=== PATIENT | female | born 1950 | race Caucasian/White ===

== ENCOUNTER 2018-09-06 08:38 | Inpatient (IN) | payer OTHER ==
[~2018-09-06] VITALS: Ht 162.6 cm; Wt 46.0 kg
[2018-09-06] VITALS (50 sets, daily range): BP systolic 55–124; BP diastolic 33–60
[~2018-09-06 08:38] MED LIST: AVELOX400 MG PO; BACTRIM DS1 TAB PO; CALCIUM 500+D PO; CRESTOR10 MG PO; DOCU SOFT100 MG PO; DULERA1 AE1 IN; DUONEB IN; HUMIRA10 MG/0.2; IMURAN50 MG PO; LYRICA50 MG PO; PERCOCET 10/31 COMBO PO; PREDNISONE20 MG PO; PREDNISONE5 MG PO; SPIRIVA HANDIHALER IN; ULTRAM50 M1 PO; UNIPHYL400 MG PO; VENTOLIN HFA IN
--- NOTE | 2018-09-06 08:48 | NUR ---
PT IMMEDIATLY TO ROOM FOR SOB. PT IS SERBIAN SPEAKING ONLY. REEL WINDER STATES THAT THE PT HAS BEEN SOB SINCE YESTERDAY. PT IS UNABLE TO TALK IN FULL SENTENCES, IS USING ACCESSORY MUSCLES. PT IS AOX4. DENIES ANY C/P, N/V. BIPAP INITATED. PT TOLERATING WELL.
[2018-09-06 09:05] LABS: IMMATURE GRANULOCYTES 0.9 % (0.0-5.0); MEAN CORPUSCULAR HGB 23.5 pG CALC (26.0-32.0); MEAN CORPUSCULAR HGB CONC 28.1 g/L CALC (32.0-36.0); NEUT# 12.51 thou/uL (2.00-7.15); RED BLOOD COUNT 7.12 mill/uL (4.20-5.60); RED CELL DISTRI WIDTH 19.8 % (11.5-15.5)
--- NOTE | 2018-09-06 09:30 | NUR ---
PT DIFFICULT TO AROUSE, OPEN EYES WITH PAINFUL STIMULI, IS NOT SPEAKING.
[2018-09-06 09:40] LABS: ALBUMIN 4.6 g/dL (3.2-5.0); ALKALINE PHOSPHATASE 158 u/l (38-126); ANION GAP 19 (6-22 (CALC)); BILIRUBIN, TOTAL 1.3 mg/dL (0.0-1.4); BUN 42 mg/dL (8-23); BUN/CREATININE RATIO 76 (12-20 (CALC)); CARBON DIOXIDE 34 mmol/l (22-30); CHLORIDE 94 mmol/l (95-108); CREATININE 0.6 mg/dL (0.5-1.0); GFR > 60 ML/MIN (>=60 (CALC)); GFR FOR AFR.AMER. > 60 ML/MIN (>=60 (CALC)); POTASSIUM 5.6 mmol/l (3.5-5.1); SGOT/AST 49 u/l (9-36); SODIUM 141 mmol/l (137-146); TOTAL PROTEIN 8.3 g/dL (6.3-8.2)
[2018-09-06 09:46] LABS: HEMATOCRIT 59.5 % (37.0-47.0); HEMOGLOBIN 16.7 g/dl (12.0-16.0); MEAN CELL VOLUME 83.6 fL CALC (80.0-100.0)
--- NOTE | 2018-09-06 09:55 | NUR ---
PT INTUBARTED AT 0940 7.5 TUBE 22 CM LIPS BY PT INTUBATED WITH 8 MG VERSED 100 MG ROCKURONIUM
--- NOTE | 2018-09-06 09:59 | NUR ---
REPORT GIVEN TO JEANNA SMALL
--- NOTE | 2018-09-06 10:45 | NUR ---
MD UPDATED ON PTS STATUS, BP AND ONLY ABLE TO ACCESS ONE PERIPHERAL LINE. CALL TO RADIOLOGY FOR PICC PLACEMENT PER EDP REQUEST.
[2018-09-06] MEDS ORDERED: VENLAFAXINE HCL75 M1 PO (11:18)
[2018-09-06] MEDS ORDERED: SEROQUEL25 MG PO (11:20)
[2018-09-06 11:32] LABS: URINE BLOOD DIPSTICK NEGATIVE (NEGATIVE); URINE COLOR YELLOW; URINE GLUCOSE - DIPSTICK NEGATIVE (NEGATIVE); URINE KETONE TRACE mg/dL (NEGATIVE); URINE LEUK ESTERASE NEGATIVE (NEGATIVE); URINE NITRITE - DIPSTICK NEGATIVE (Negative); URINE PROTEIN - DIPSTICK 30 mg/dL (NEG-TRACE); URINE SPECIFIC GRAVITY >=1.030
[2018-09-06 11:39] LABS: URINE BILIRUBIN - DIPSTICK NEGATIVE (NEGATIVE)
[2018-09-06 11:41] LABS: URINE RBC 0-2 RBC/hpf (0-5); URINE WBC 0-2 WBC/hpf (0-5)
[2018-09-06 11:42] LABS: URINE CASTS RARE lpf (NONE-RARE); URINE HYALINE CAST RARE lpf (NONE-RARE); URINE MUCUS FEW hpf (NONE-FEW)
--- NOTE | 2018-09-06 11:56 | NUR ---
PT WITH SECOND LINE NOW, ABX INFUSING THERE. PT ON DIPRIVAN, TITRATED DOWN PER LOW BP TO 5 M/K/M, NOW UP TO 20 PER SLIGHT MOVEMENT AND BP 109/53.
--- NOTE | 2018-09-06 12:10 | NUR ---
REPORT PROVIDED TO JAK IN ICU. PT WILL GO TO CT [facility], THEN ICU-4 AFTER THAT.
--- NOTE | 2018-09-06 12:35 | NUR ---
PT ADMITTED TO ICU BED 4 VIA STERCTHER FROM ER,. PT INTUBATED/SEDATED WITH 7.5F ETT 21cm AT LIP LINE, SEE FLOW SHEET FOR SETTINGS, VS STABLE LUNGS COARSE WITH NO COUGH NOTED AT THIS TIME, ABD SOFT AND BS ACTIVE WITH 12 F OG PLACED BY Anjel ANDRADE RN AND PLACEMENT VERIFIED BY 2 RN'S. NO DRNG NOTED WILL PLACE TO LIS, SKIN WARM DRY AND INTACT, WITH SCATTERED DRY RAISED KERATOTIC TAGS TO ALL EXTREMETIES, EDEMA NOTED TO BILATERAL FEET/ANKLES UP TO MID CALF, PPPB BUT WEAK, SOME CLUBBING NOTED TO NAIL BEDS. ALL MONITORING EQUIPMENT APPLIED, TELE READING SR RATE IN THE 80'S PT BP HYPOTENSIVE, STILL MILDY AROUSABLE WITH PROPOFOL, WILL TITRATE TOLERATED, PROPOFOL INFUSING INTO 22G IN LAC ALSO HAS IV ABT INFUSING INTO 22G LEFT FOOT/ANKLE ACCESS WITH GOOD ASPIRATE NOTED ON BOTH SITES, UNABLE TO OBTAIN HISTORY RELATED TO PT INTUABTED AND SEDATED WITH NO VISITORS OR FAMILY MEMBERS PRESENT WITH PT. EASILY VISIBEL FROM NURSES STATION FOR SAFETY, WILL CONTINUE TO MONITOR.
--- NOTE | 2018-09-06 12:52 | NUR ---
PT TAKEN TO CT, THEN TO ICU-4 WITHOUT INCIDENT.
--- NOTE | 2018-09-06 13:00 | NUR ---
OG PLACED WITH AUSCULATION VERIFICATION x2 RN. ORDER PLACED FOR CXR TO VERIFY PLACEMENT. OG TUBE TAPED TO ET TUBE & PTS GOWN. SUCTION SET UP IN ROOM.
--- NOTE | 2018-09-06 13:30 | NUR ---
PT REPOSITIONED FOR COMFORT, 1.5 SQUARE IN AREA OF BLANCHABLE REDNESS NOTED TO COCCYX SURE PREP APPLIED AND COVERED WITH AQUACEL FOAM. GARCIA CATH INTACT WITH SECURITY DEVICE TO R UPPER THIGH, COMFORT MEASURES PROVIDED WILL CONTINUE TO MONITOR.
--- NOTE | 2018-09-06 14:24 | NUR ---
2 GOLD RINGS REMOVED FROM LEFT HAND. PLACED IN SPECIMEN CUP & PLACED IN BELONGINGS BAG W/ PT DRUM HANDLER IT.
--- NOTE | 2018-09-06 14:25 | NUR ---
VERSED DRIP STARTED AFTER OBSERVING PT SITTING STRAIGHT UP IN BED, WHILE ON THE DIPRIVAN DRIP. SOFT RESTRAINTS ON WRISTS PREVENTING PT FROM PULLING ON MEDICAL EQUIPMENT. WILL MONITOR V/S CLOSELY. DR DOTSON WILL BE HERE AROUND 1530 TO START A CENTRAL LINE.
--- NOTE | 2018-09-06 14:51 | NUR ---
VERSED DRIP LOWERED TO 5ML/HR D/T HYPOTENSION. PT STILL APPEARS RESTLESS.
--- NOTE | 2018-09-06 16:06 | NUR ---
AT BEDSIDE FOR TLC PLACEMENT.
--- NOTE | 2018-09-06 16:25 | NUR ---
RADIOLOGY AT BEDSIDE FOR PLACEMENT VERIFICATION OF TLC, WILL CONTINUE TO MONITOR.
--- NOTE | 2018-09-06 17:37 | NUR ---
AWARE OF CONTINUED HYPOTENSION WITH PROPOFOL AND VERSED, NEW ORDERS REC'D, ENFORCEMENT MANAGER NOTIFIED
--- NOTE | 2018-09-06 17:57 | NUR ---
LEVOPHED GTT INTITIATED PER PROTOCOL, FOR HYPOTENSION WILL MONTIOR CLOSELY
--- NOTE | 2018-09-06 18:27 | NUR ---
MAP CURRENTLY >65 , WILL MONITOR CLOSELY AND TITRATE LEVOPHED ACCORDINGLY, NO S/S OF DISTRESS NOTED, RESTING COMFORTABLY AT THIS TIME
--- NOTE | 2018-09-06 19:00 | NUR ---
RECEIVED REPORT FROM AM NURSE. PATIENT CURRENTLY WITH BATCHMAKER. PATIENT CONTINUES TO BE SEDATED AND INTUBATED. PATIENT IN NO SIGNS OF DISTRESS. WILL ASSUME CARE.
--- NOTE | 2018-09-06 19:09 | NUR ---
PT RECEIVED ON AC MODE WITH THE FOLLOWING SETTING AC RATE 18, VT 450, PEEP 5 WITH 60%. INTUBATED WITH A 7.5 ETT AT 22 CM OF THE LIPS. COARSE BREATH SOUND. SUCTIONED LARGE AMOUNT OF THICK CREAMING YELLOWISH SECRETION.W WE WILL CONTINUE TO MONITOR THE PATIENT.
--- NOTE | 2018-09-06 20:00 | NUR ---
PATIENT ASSESSMENT COMPLETED. PATIENT REMAIN INTUBATED. PATIENT WITH NO SIGNS OF DISTRESS. TOLERATING VENT WELL. PATIENT CONTINUES WITH LEVOPHED 10 MCG/MIN, PROPOFOL 35 MCG/KG/MIN, VERSED 5 ML/HR. PATIENT TURNED AND REPOSITIONED TO RIGHT SIDE. PATIENTS VITAL MONITORED. NO TEMPERATURE. GARCIA IN PLACE- LOW OUTPUT. BILATERAL WRIST RESTRAINTS INTACT. WILL CONTINUE TO MONITOR.
--- NOTE | 2018-09-06 21:00 | NUR ---
PATIENT WITH NO CHANGES. TOLERATING VENT WELL. WRIST RESTRAINTS INTACT. LEVOPHED, PROPOFOL, [place] GTT CONTINUE WITH NO CHANGES. GARCIA IN PLACE. OG WITH GREEN OUTPUT. VITALS MONITORED-HEART RATE MAINTAINING. WILL CONTINUE TO MONITOR PATIENT.
--- NOTE | 2018-09-06 22:00 | NUR ---
PATIENT CONTINUES TOLERATING VENT. PATIENT IN NO SIGNS OF DISTRESS. BLOOD PRESSURE AND HEART RATE STABLE AND SUSTAINING. PATIENTS LEVOPHED AT 10MCG/MIN, DIPROVAN 35 MCG/KG/MIN, VERSED 5ML/HR. NO CHANGES ON VENT. PATIENT TURNED AND REPOSTITIONED TO LEFT SIDE. ORAL CARE PROVIDED. GARCIA WITH OUTPUT. WILL CONTINUE TO MONITOR PATIENT.
--- NOTE | 2018-09-06 23:00 | NUR ---
PATIENT IN NO DISTRESS. LEVOPHED CONTINUES AT 10 MCG/MIN. BLOOD PRESSURE AND HEART RATE STABLE. DIPROVAN INCREASED TO 45 MCG/KG/MIN AT 2230-PATIENT GRIMACING WHEN ORAL CARE PERFORMED AND KICKING LEGS WHEN REPOSITIONED. VERSED CONTINUES AT 5ML/HR. VENT SETTINGS UNCHANGED. WILL CONTINUE TO MONITOR.
[2018-09-07] VITALS (67 sets, daily range): BP systolic 85–126; BP diastolic 46–64
--- NOTE | 2018-09-07 | NUR ---
PATIENT REPOSITIONED SUPINE. PATIENT PROVIDED WITH ORAL CARE. PATIENT CONTINUES TO TOLERATE VENT. NO CHANGES ON VENT SETTING. PATIENT CONTINUES WITH LEVOPHED, PROPOFOL AND VERSED GTT WITH NO CHANGES. VITALS STABLE. WILL CONTINUE TO MONITOR PATIENT.
--- NOTE | 2018-09-07 01:00 | NUR ---
PATIENT APPEARS COMFORTABLE. TOLERATING VENT WELL. NO SIGNS OF DISTRESS. PATIENT CONTINUES WITH PROPOFOL, VERSED, AND LEVOPHED- NO CHANGES IN RATES. VENTILATOR WITH SAME RATE WELL. VITAL SIGNS STABLE. WILL CONTINUE TO MONITOR.
--- NOTE | 2018-09-07 02:00 | NUR ---
PATIENT TURNED AND REPOSITIONED TO RIGHT SIDE. PATIENT PROVIDED ORAL CARE. PATIENT CONTINUES TO TOLERATE VENT- NO CHANGE IN SETTING. PATIENT CONTINUES WITH PROPOFOL, VERSED, AND LEVOPHED- NO CHANGES IN RATES. VITALS STABLE. WILL CONTINUE TO MONITOR PATIENT.
--- NOTE | 2018-09-07 03:00 | NUR ---
PATIENT APPEARS COMFORTABLE. PATIENT WITH NO SIGNS OF PAIN OR DISTRESS. PATIENT TOLERATING VENT WELL- NO CHANGES IN SETTING. PATIENT CONTINUES WITH PROPOFOL, VERSED, AND LEVOPHED- NO CHANGES IN SETTINGS. VITALS STABLE. WILL CONTINUE TO MONITOR PATIENT.
--- NOTE | 2018-09-07 04:00 | NUR ---
PATIENT TURNED AND REPOSITIONED TO LEFT SIDE. ORAL CARE PROVIDED. PATIENTS VITALS ARE STABLE. PATIENT IN NO DISTRESS. PATIENT CONTINUES TO TOLEARTATE VENT- NO CHANGES. NO CHANGES WITH MEDICATIONS- LEVOPED, VERSED, AND PROPOFOL INFUSING. WILL CONTINUE TO MONITOR.
[2018-09-07 05:00] LABS: IMMATURE GRANULOCYTES 0.4 % (0.0-5.0); MEAN CORPUSCULAR HGB 23.9 pG CALC (26.0-32.0); NEUT# 11.41 thou/uL (2.00-7.15); RED BLOOD COUNT 5.44 mill/uL (4.20-5.60); RED CELL DISTRI WIDTH 18.4 % (11.5-15.5)
--- NOTE | 2018-09-07 05:00 | NUR ---
NO CHANGES WITH PATIENT. PATIENT REMAINS ON VENT. SHE CONTINUES TO TOLERATE VENT WELL. PROPOFOL AT 45MCG/KG/HR, VERSED 5ML/HR, LEVOPHED AT 10 MCG/MIN. PATIENT CURRENTLY WITH RESPIRATORY AT BEDSIDE- WHO IS PROVIDING DEEP SUCTIONING. WILL CONTINUE TO MONITOR.
[2018-09-07 05:10] LABS: MEAN CELL VOLUME 77.2 fL CALC (80.0-100.0)
[2018-09-07 05:28] LABS: ANION GAP 9 (6-22 (CALC)); BILIRUBIN, TOTAL 0.7 mg/dL (0.0-1.4); BUN 37 mg/dL (8-23); BUN/CREATININE RATIO 82 (12-20 (CALC)); CARBON DIOXIDE 34 mmol/l (22-30); CHLORIDE 100 mmol/l (95-108); CREATININE 0.4 mg/dL (0.5-1.0); GFR > 60 ML/MIN (>=60 (CALC)); GFR FOR AFR.AMER. > 60 ML/MIN (>=60 (CALC)); LIPASE 56 u/l (23-300); MAGNESIUM 1.7 mg/dL (1.6-2.3); POTASSIUM 4.7 mmol/l (3.5-5.1); SGOT/AST 28 u/l (9-36); SODIUM 138 mmol/l (137-146)
[2018-09-07 05:50] LABS: ALBUMIN 2.6 g/dL (3.2-5.0); ALKALINE PHOSPHATASE 75 u/l (38-126); AMYLASE < 30 u/l (30-110); TOTAL PROTEIN 5.2 g/dL (6.3-8.2)
--- NOTE | 2018-09-07 06:00 | NUR ---
PATIENT REPOSITIONED SUPINE. PATIENT CONTINUES TO TOLERATE VENT WELL. MEDICATIONS INFUSING WITH NO CHANGES. PATIENTS VITALS STABLE. NO SIGNS OF DISTRESS. ORAL CARE PROVIDED. SCDS IN PLACE. FLUIDS INFUSING. AFEBRILE. RESTRAINTS INTACT. WILL CONTINUE TO MONITOR.
--- NOTE | 2018-09-07 07:45 | NUR ---
PATIENT LYING WUPINE IN BED, HOB 30 DEGREES. IV FLUIDS INFUSING. RIJ 3 LUMEN FLUSHING, LAC 22 GAUGE FLUSHING PROPERLY WELL. GARCIA INTACT.SCD'S INTACT. PATIENT ON VENT ASSIST CONTROL, PEEP 5.0, TV 450, FIO2 50, RATE 18, TAPED AT 22, ETT SIZE 7.5. OG INTACT, GREEN DRAINAGE, LOW INTERMITTENT SUCTIONING. ORAL CARE PERFORMED, PATIENT REPOSITIONED ON RIGHT SIDE. HEELS OFF BED WITH PILLOWS. RESTRAINTS INTACT.SINUS RHYTHM ON TELEMETRY. CALL LIGHT AT BEDSIDE.
--- NOTE | 2018-09-07 12:05 | NUR ---
PATIENT REPSOITIONED ON LEFT SIDE. IN MODERATE SEDATION. ORAL CARE PERFORMED. SUCTIONING PERFORMED. HEELS OFF BED WITH PILLOW. ARMS ELEVATED WITH PILLOWS. VENT SAME SETTINGS, SEE PROCESS INTERVENTION CHARTING. DR DYE GAVE ORDER TO TITRATE LEVOPHED TO 3 MCG/MIN THAN TO 0 MCG/MIN, TITRATING DOWN PER PROTOCOL NOW.
--- NOTE | 2018-09-07 14:20 | NUR ---
PATIENT HAS BEEN REPOSITIONED SUPINE. ORAL CARE PERFORMED.VENT IN ASSIST CONTROL SAME SETTINGS, SEE PROCESS INTERVENTIONS CHARTED. RESTRAINTS INTACT. HEELS AND ARMS ELEVATED WITH PILLOWS, GARCIA INTACT. PATIENT IN MODERATE SEDATION.
--- NOTE | 2018-09-07 15:38 | NUR ---
COMMERCIAL REAL ESTATE AGENT AT BEDSIDE PERFORMING ECHOCARDIOGRAM.
--- NOTE | 2018-09-07 16:00 | NUR ---
PATIENT IN MODERATE SEDATION. WHEN HE IS BEING REPOSITIONED OR ORAL CARE PERFORMED, OR SUCTIONING BEING PERFORMED, PATIENT DOES MOVE EXTREMITIES AND MOVES HEAD AROUND. PATIENT IS REASSURED EACH TIME. SHE IS REPOSITIONED ON HER RIGHT SIDE, ORAL CARE PERFORMED WELL SUCTIONING. ARMS AND HEELS ELEVATED WITH PILLOW. GARCIA CATHETER INTACT. SCD'S INTACT. NO CHANGES IN VENT SETTINGS, SE EPROCES SINTERVENTIONS CHARTING. IV FLUIDS AND MEDICATIONS INFUSING.
--- NOTE | 2018-09-07 18:00 | NUR ---
PATIENT IN MODERATE SEDATION. OG TUBE INTACT, GREEN DRAINAGE, HIGH INTERMITTENT SUCTION. GARCIA INTACT AND DRAINING. SCD'S INTACT. ETT TUBE INTACT. VENT SETTINGS HAVE NOT CHANGED, SEE PROCESS INTERVENTIONS CHARTED. HEELS AND ARMS ELEVATED WITH PILLOW. IV FLUIDS AND MEDICATIONS INFUSING.
--- NOTE | 2018-09-07 18:45 | NUR ---
REPORT FROM STACI VARGAS. ASSUMED PT. CARE.
--- NOTE | 2018-09-07 19:25 | NUR ---
PT. FOUND REACHING UP IN ATTEMPT TO PULL AT ET TUBE. PROPOFOL DRIP INCREASED TO 55 MCG AT THIS TIME. RESTRAINT REPOSITIONED AND REACH SHORTENED PT. WAS ABLE TO REACH UP TO MOUTH. BP REMAINS STABLE. WILL CONTINUE TO MONITOR.
--- NOTE | 2018-09-07 20:05 | NUR ---
PT. MORE RESTFUL ON THE VENT AT THIS TIME. RESPS UNLABORED. COARSE THROUGHOUT. HYPOACTIVE BOWEL SOUNDS. SKIN REMAINS WARM AND DRY. TENTING NOTED. VENT SETTINGS UNCHANGED. AC, RATE-18, FIO2-50%, TV-450, PEEP-5. BILAT LOWER EXT EDEMA NOTED. DISTIL PULSES INTACT. BP/HR STABLE. SINUS ON THE MONITOR. MOVES ALL EXTREMITIES. CALL LIGHT REMAINS WITHIN REACH. WILL CONTINUE TO MONITOR.
--- NOTE | 2018-09-07 21:10 | NUR ---
NEB TREATMENT IN PROGRESS AT THIS TIME. PT. RESTING COMFORTABLY ON THE VENT. SETTINGS REMAIN UNCHANGED. BP/HR STABLE. PROPOFOL DRIP INFUSING AT 65 MCG AT THIS TIME. CALL LIGHT REMAINS WITHIN REACH. PT. REMAINS RESTRAINED AT THIS TIME.
--- NOTE | 2018-09-07 23:08 | NUR ---
PT. CONTINUES TO REST COMFORTABLY ON THE VENT, PT. APPEARS LESS AGGITATED AND RESTLESS AT THIS TIME. CALL LIGHT REMAINS WITHIN REACH. BP/HR STABLE.
[2018-09-08] VITALS (41 sets, daily range): BP systolic 104–142; BP diastolic 53–86
--- NOTE | 2018-09-08 00:15 | NUR ---
PT. REPOSITIONED TO RT. SIDE AT THIS TIME. ORAL CARE AND DEEP SUCTIONING PERFORMED. SCANT SPUTUM OUT. BROWN GASTRIC CONTENT NOTED TO OG TUBE. RESTRAINS REMAIN IN PLACE AT THIS TIME. CALL LIGHT REMAINS WITHIN REACH. PT. RESTFUL ON THE VENT. WILL CONTINUE TO ASSESS.
--- NOTE | 2018-09-08 02:02 | NUR ---
PT. REMAINS RESTFUL ON THE VENT. BP/HR STABLE. PROPOFOL DRIP INFUSING AT 65 MCG/KG/MIN, VERSED AT 0.5 MG/HR AND IV FLUIDS AT 75 CC/HR. VENT SETTINGS REMAIN UNCHANGED. CALL LIGHT REMAINS WITHIN REACH.
--- NOTE | 2018-09-08 03:25 | NUR ---
PT. REMAINS RESTFUL ON THE VENT. RESPS UNLABORED. PROPOFOL DRIP DECREASED TO 60 MCG/KG/MIN AT THIS TIME. OTHER DRIPS REMAIN UNCHANGED. SKIN REMAINS WARM AND DRY. NO DISTRESS.
--- NOTE | 2018-09-08 04:30 | NUR ---
LABS OBTAINED AT THIS TIME. ALL LINES FLUSHED. PT. HAS BEEN REPOSITIONED TO LT. SIDE AT THIS TIME. DEEP SUCTIONING AND ORAL CARE PROVIDED. LIP MOISTURIZER APPLIED. SCANT RESPIRATORY AND ORAL SECRETIONS. CALL LIGHT REMAINS WITHIN REACH. ROM AND RELEASE PERFORMED.
[2018-09-08 05:15] LABS: HEMATOCRIT 41.3 % (37.0-47.0); HEMOGLOBIN 12.7 g/dl (12.0-16.0); IMMATURE GRANULOCYTES 0.3 % (0.0-5.0); MEAN CELL VOLUME 77.6 fL CALC (80.0-100.0); MEAN CORPUSCULAR HGB 23.9 pG CALC (26.0-32.0); MEAN CORPUSCULAR HGB CONC 30.8 g/L CALC (32.0-36.0); NEUT# 6.45 thou/uL (2.00-7.15); RED BLOOD COUNT 5.32 mill/uL (4.20-5.60); RED CELL DISTRI WIDTH 18.6 % (11.5-15.5)
[2018-09-08 05:31] LABS: ALBUMIN 2.5 g/dL (3.2-5.0); ALKALINE PHOSPHATASE 67 u/l (38-126); ANION GAP 10 (6-22 (CALC)); BILIRUBIN, TOTAL 0.5 mg/dL (0.0-1.4); BUN 22 mg/dL (8-23); BUN/CREATININE RATIO 62 (12-20 (CALC)); CARBON DIOXIDE 30 mmol/l (22-30); CHLORIDE 103 mmol/l (95-108); CREATININE 0.4 mg/dL (0.5-1.0); GFR > 60 ML/MIN (>=60 (CALC)); GFR FOR AFR.AMER. > 60 ML/MIN (>=60 (CALC)); MAGNESIUM 1.6 mg/dL (1.6-2.3); POTASSIUM 4.5 mmol/l (3.5-5.1); SGOT/AST 21 u/l (9-36); SODIUM 138 mmol/l (137-146); TOTAL PROTEIN 5.1 g/dL (6.3-8.2)
--- NOTE | 2018-09-08 06:05 | NUR ---
PT. REPOSITIONED FOR COMFORT. ORAL CARE AND SUCTIONING PROVIDED. ROM AND RELEASE PERFORMED. REPOSITIONED SUPINE. BP/HR STABLE. PROPOFOL DRIP INFUSING AT 60 MCG/KG/MIN AT THIS TIME. WILL CONTINUE TO ASSESS.
--- NOTE | 2018-09-08 07:15 | NUR ---
PATIENT HAS BEEN REPOSITIONED ON HER RIGHT SIDE, HEELS AND ARMS ELEVATED WITH PILLOW. VENT SETTINGS HAVE NOT CHANGED, ASSIST CONTROL, TV 450, FIO2 50, RATE 18, PEEP 5.0, TAPED AT 22, ETT SIZE 7.5. ETT HAS BEEN SUCTIONED. MOUTH CARE PERFORMED. PATIENT IN MODERATE SEDATION. RIJ TRIPLE LUMEN FLUSHES AND RETURNS BLOOD PROPERLY, LAC 22 GAUGE ALSO FLUSHES AND RETURNS BLOOD PROPERLY. SCD'S INTACT, GARCIA INTACT. IV FLUIDS AND MEDICATIONS INFUSING PROPERLY AND CORRECT RATE.
--- NOTE | 2018-09-08 08:49 | NUR ---
DR DYE CALLED AND GAVE ORDER TO NOTIFY RT TO DO TRIAL OF CPAP ON PATIENT. NOTIFIED RT AND PROPOFOL DRIP WILL BE TITRATED DOWN ACCORDING TO PROTOCOL.
--- NOTE | 2018-09-08 09:29 | NUR ---
VERSED DRIP HAS BEEN TURNED OFF SINCE 913, PATIENT SLOWLY AWAKENING. MOVING HEAD AROUND. REASSURING PATIENT.
--- NOTE | 2018-09-08 09:38 | NUR ---
PROPOFOL DRIP AT 5 MCG/KG/MIN. PATIENT NOT FOLLOWING COMMANNDS BUT MOVING HER HEAD SIDE TO SIDE.
--- NOTE | 2018-09-08 09:46 | NUR ---
OF PATIENT XOCHILT AND I HAVE GIVEN AN UPDATE OF PATIENT, REPORTS HE WILL CALL AGAIN IN THE AFTERNOON.
--- NOTE | 2018-09-08 09:47 | NUR ---
PATIENT NOT FOLLOWING COMMANDS. PROPOFOL DRIP HAS BEEN OFF SINCE 941. PATIENT MOVING HER HEAD SIDE TO SIDE, PICKING HER HEAF OFF PILLOW.
--- NOTE | 2018-09-08 10:19 | NUR ---
1015: PATIENT EXTUBATED. ON 4 LITERS NASAL CANULA HUMIDIFIED, SATS ARE 91 %.
--- NOTE | 2018-09-08 10:21 | NUR ---
PT. EXTUBATED AND PLACED ON 4L NC PER DR. DYE.
--- NOTE | 2018-09-08 10:25 | NUR ---
PATIENT FOLLOWING SOME COMMANDS SUCH TAKING DEEP BREATHS WHEN LISTENING TO HE RLUNG SOUNDS. LUNGS SOUNDS ARE NO LONGER COARSE, MORE CLEAR NOW. RESTRAINTS OFF, PATIENT ABLE TO MOVE HER ARMS AROUND. HAS NOT OPENED HER EYES YET.
--- NOTE | 2018-09-08 10:59 | NUR ---
DR DYE IN TO ASSESS PATIENT. GAVE VERBAL ORDER TO SET O2 SATURATIONS 89%-92%. PATIENT MOUTH BREATHING, O2 SATURATIONS SUSTAINING 91%-93% ON 4 LITERS NASAL CANULA HUMIDIFIED.
--- NOTE | 2018-09-08 11:07 | NUR ---
DR DYE GAVE ORDER TO STOP IV FLUIDS, IV FLUIDS HAVE BEEN STOPPED NOW.
--- NOTE | 2018-09-08 12:00 | NUR ---
PATIENT LYING IN BED SELF REPOSITIONS NOW. ABLE TO FOLLOW COMMANDS, ABLE TO SPEAK AND ANSWER SOME QUESTIONS, HAS TO REPEAT HERSELF TO UNDERSTAND, AT TIMES TRIES TAY TAE HER OXYGEN OFF BUT I HAVE EDUCATED HER ABOUT IT WELL THE CALL LIGHT. SATS MAINTAINING 94% ON 4 LITERS NASAL CANULA HUMIDIFIED.
--- NOTE | 2018-09-08 13:57 | NUR ---
patient keeps trying to take her nasal canula after being educated about it. her frineds have just arrived after being called to come see her per her request and she is confused. call light within reach.
--- NOTE | 2018-09-08 16:15 | NUR ---
FRIENDS HAVE LEFT BEDSIDE FEW MINUTES AGO. PATIENT WAS CALM WHEN THEY WERE HERE. PATIENT IS CONFUSED AT TIMES. SHE IS ABLE TO FOLLOW COMMANDS, HAS TO BE REASSURED AND REORIENTED. SHE IS NOW ON 3 LITERS NASAL CANULA, SATS AT 94 % RIGHT NOW. WHEN SHE COUGHS OR MOVES IN BED SHE DESATS TO 89%. CALL LIGHT WITHIN REACH.
--- NOTE | 2018-09-08 18:01 | NUR ---
PATIENT SITTING UP IN BED, ON 3 LITERS NASAL CANULA. SPITTING UP THICK YELLOW PHLEGM, PATIENT IS YELLING OUT, CONFUSED.
--- NOTE | 2018-09-08 20:25 | NUR ---
PATIENT RESTING IN BED PATIENT IS SOBING ON THE PHONE AND WANTING TO GO HOME. BREATH SOUNDS DIMINISHED WITH COUGH. PATIENT IS ON OXYGEN AT 3.5 L/MIN. PATIENT SATS BETWEEN 89-93. PATIENT IS HAVING A HARD TIME COUGHING ANYTHING UP AND IS ASKING FOR AN EXPORANT. DR. MONROY CALLED AND MESSAGE LEFT FOR TYLENOL AND MUCINEX. PATIENT ALERT AND ORIENTEDX4. PATIENT WAS SUPPOSED TO LEAVE TOMORROW TO GO HOME TO [place]. PATIENT HAS HAD NO BOWEL MOVEMENT SINCE 09/04/2018 MD IS AWARE. PATIENT IS NOT EATING VERY MUCH. PATIENT OFFERED JELLO AND IS TRYING TO EAT SOME CRACKERS. WILL CONTINUE TO MONITOR PATIENT PROGRESS.
--- NOTE | 2018-09-08 22:26 | NUR ---
@2130 PATIENT HAD 2 BOWEL MOVMENTS. VERY LOOSE AND GEL LIKE. PATIENT CLEANED AND PUT BACK IN BED. NO COMPLAINTS OF PAIN. PATIENT TRYING TO REST. WILL CONTINUE TO MONITOR PATIENT PROGRESS.
[2018-09-09] VITALS: BP 111/66
--- NOTE | 2018-09-09 02:12 | NUR ---
pATIENT IS SITTING ON SIDE OF BED. PATIENT IS CONFUSED AND HAD TO BE REDIRECTED MANY TIMES. WILL MONITOR FOR MORE SOB AND AMS.
[2018-09-09 04:00] VITALS: BP 127/64
--- NOTE | 2018-09-09 04:02 | NUR ---
PATIENT RESTING IN BED. NO S&S OF DISTRESS. PATIENT IS CONFUSED TRYING TO GET OUT OF BED AND ALSO TRYING TO LEAVE AND GO HOME. PATIENT REORIENTED AND PUT BACK IN THE BED. PATIENT IS LABORED WHEN MOVING IN THE BED. WILL CONTINUE TO MONITOR PATIENT PROGRESS.
[2018-09-09 04:36] LABS: HEMATOCRIT 44.8 % (37.0-47.0); HEMOGLOBIN 13.1 g/dl (12.0-16.0); IMMATURE GRANULOCYTES 0.4 % (0.0-5.0); MEAN CELL VOLUME 80.1 fL CALC (80.0-100.0); MEAN CORPUSCULAR HGB 23.4 pG CALC (26.0-32.0); MEAN CORPUSCULAR HGB CONC 29.2 g/L CALC (32.0-36.0); NEUT# 8.64 thou/uL (2.00-7.15); RED BLOOD COUNT 5.59 mill/uL (4.20-5.60); RED CELL DISTRI WIDTH 19.4 % (11.5-15.5)
[2018-09-09 04:48] LABS: ALKALINE PHOSPHATASE 73 u/l (38-126); ANION GAP 11 (6-22 (CALC)); BILIRUBIN, TOTAL 0.8 mg/dL (0.0-1.4); BUN 18 mg/dL (8-23); BUN/CREATININE RATIO 55 (12-20 (CALC)); CARBON DIOXIDE 30 mmol/l (22-30); CHLORIDE 105 mmol/l (95-108); CREATININE 0.3 mg/dL (0.5-1.0); GFR > 60 ML/MIN (>=60 (CALC)); GFR FOR AFR.AMER. > 60 ML/MIN (>=60 (CALC)); MAGNESIUM 1.6 mg/dL (1.6-2.3); POTASSIUM 4.2 mmol/l (3.5-5.1); SODIUM 142 mmol/l (137-146); TOTAL PROTEIN 5.8 g/dL (6.3-8.2)
[2018-09-09 04:57] LABS: SGOT/AST 54 u/l (9-36)
--- NOTE | 2018-09-09 06:28 | NUR ---
PATIENT IS MORE CONFUSED. SHE CONTINUES TO TRY TO GET OUT OF BED AND TO TAKE HER OXYGEN OFF. PATIENT DESAT'S IN THE LOW TO MID 70'S WITHOUT HER OXYGEN. SHE IS NOT LISTENING TO REASON AND IS CONSTANTLY BEING REORIENTED. WILL CONTINUE TO MONITOR PATIENT PROGRESS.
--- NOTE | 2018-09-09 06:50 | NUR ---
RECVD REPORT FROM Beatriz ROA RN. PER REPORT, PTS STATED HE WAS COMING TO GET PT TODAY TO HEAD BACK TO [facility] BC HE HAS COPD AND HE WILL BE OUT OF HIS MEDICINE BY WEDNESDAY.
--- NOTE | 2018-09-09 07:02 | NUR ---
PT VERY CONFUSED, TRYING TO GET OUT OF BED. STATING "HER FRIEND IS RIGHT HERE & SHE NEEDS TO LEAVE". CALLED [facility] RE: LANGUAGE LINE D/T PTS LIMITED THAI. CALLING [facility] TO FIND LANGUAGE LINE PHONE.
--- NOTE | 2018-09-09 07:20 | NUR ---
LANGUAGE LINE CALLED. MINDA, TRANSLATED IN AM[facility]AR[facility] THAT THERE ARE NO FRIENDS HERE TO GET HER, SHE SHOULD STAY IN BED SO SHE DOESNT FALL, AND IT'S UNADVISED THAT SHE LEAVE THE HOSPITAL TO DRIVE BACK TO [facility] D/T HER CONDITION. PT YELLING OUT FOR JIL.
--- NOTE | 2018-09-09 07:22 | NUR ---
CALLED, LM, FOR [facility] @ [phone] BUT WAS ABLE TO REACH HIM AT [phone]. HE STATES HE NEEDS TO GET BACK TO [facility] FOR A CANCER TREATMENT FOR LUNG CANCER AND HE IS RUNNING OUT OF HIS COPD MEDICATION. MR SOUSA WAS NOTIFIED THAT THE TRIP HOME WITH PT COULD POSSIBLY BE A FATAL TRIP FOR PT. PT REMOVING ALL MEDICAL EQUIPMENT AND YELLING OUT FOR "JIL" & "AGA" AND REPEATEDLY TRYING TO CLIMB OUT OF BED. MR SOUSA SPOKE GOOD IRANIAN.
--- NOTE | 2018-09-09 07:30 | NUR ---
RANDAL NUNEZHARP REPAIRER, ON UNIT WITNESSING PTS BEHAVIOR & UPDATED ON THIS MORNINGS EVENTS.
--- NOTE | 2018-09-09 07:36 | NUR ---
PT REMOVED ALL MONITORING EQUIPMENT & NC. PT REFUSED BREAKFAST. REFUSED ASSESSMENT.
--- NOTE | 2018-09-09 07:45 | NUR ---
PT SITTING ON SIDE OF BED, HEAD & ARMS ON TABLE. OCCASSIONALLY YELLING OUT NAMES & SPEAKING MOZAMBICAN.
[2018-09-09 08:00] VITALS: BP 152/77
--- NOTE | 2018-09-09 08:28 | NUR ---
PT STARTED YELLING SHE "NEEDS HELP". NC PLACED BACK ON PT @3.5L HUMIDIFIED O2. PT PLACED BACK IN BED & BACK ON MONITORS. PT ASKED & GIVEN A BOTTLE OF WATER. PT ALLOWED ME TO GIVE HER IV ABX. PT STILL CALLING OUT FOR HER FRIENDS "AGA".
--- NOTE | 2018-09-09 08:42 | NUR ---
PT REMOVING MONITORING EQUIPMENT AGAIN.
--- NOTE | 2018-09-09 08:46 | NUR ---
PT TRYING TO CLIMB OUT OF BED AGAIN. PT ENCOURAGED TO STAY IN BED FOR HER SAFETY. PT WET COUGHING OCCASSIONALLY.
--- NOTE | 2018-09-09 08:52 | NUR ---
EXPLAINED SITUATION TO LORIE, CASE MANAGEMENT, IN HOPES FOR A WAY TO AID THIS PT SO SHE CAN STAY TO RECVE THE HEALTH CARE SHE NEEDS.
--- NOTE | 2018-09-09 09:15 | NUR ---
PT PULLING ON CATH GARCIA TUBE, TRYING TO REMOVE IT. PT REFUSING TO PUT SCD & MONITORING (BP CUFF, PULSE OX, TELE) BACK ON. PT PULLING ON CENTRAL LINE. EXPLAINED TO PT THAT SHE NEEDS SAID EQUIPMENT TO HELP HER GET BETTER.
--- NOTE | 2018-09-09 09:17 | NUR ---
PT STILL REFUSING ASSESSMENT. ALLOWED AM MEDS. ALLOWED ME TO PLACE PT BACK ON MONITOR. PT ALSO REFUSED TO ANSWER A&O QUESTIONS. MAKING COMMENTS ABOUT NOT GETTING BREAKFAST. WHEN TOLD PT SHE REFUSED BREAKFAST, PT STATES NO, SHE REFUSED DINNER, THIS RN IS WRONG. PT KEEPS YELLING OUT TO HER FRIEND AGA. PT THINKS HER FRIEND IS HERE BUT WE WONT LET HER SEE HER. PT ALSO THINKS WE PLACED A RED LIGHT IN HER NOSE AND IT IS STILL THERE AND THAT'S WHY SHE CANT BREATH.
--- NOTE | 2018-09-09 09:23 | NUR ---
CALLED TO [facility] FOR MEAL FOR PT.
--- NOTE | 2018-09-09 09:33 | NUR ---
PT GIVEN TRAY OF CEREAL & JUICE. PT STARTED CRYING BC SHE STATES SHE HAS NOT EATEN IN 10 DAYS. PT SHOWED SHE HAD A CUP OF GRAPES AND APPLESAUCE ON HER TRAY AT THAT MOMENT ABD I CLEARED HER DINNER TRAY FROM LAST NIGHT THAT WAS SITTING ON HER SINK. PT ASKING FOR HER PURSE. THERE WAS NO PURSE IN HER BELONGINGS BAG IN THE CABINET. WHEN ASKED WHERE HE PURSE WAS, PT POINTED TO THE END OF THE BED STATING SEE THAT BROWN STRAP RIGHT THERE? NO BROWN STRAP OBSERVED.
--- NOTE | 2018-09-09 09:58 | NUR ---
DR DYE @BEDSIDE [facility] PT & STACI CAMPO. PT RECVING BREATHING TREATMENT FROM RT
--- NOTE | 2018-09-09 10:45 | NUR ---
PASSED CALL THROUGH TO PT ON PORT PHONE.
--- NOTE | 2018-09-09 11:03 | NUR ---
PT MEDICATED FOR ANXIETY. PT WOULDNT LET ME TAKE AWAY HER CEREAL TRAY BC SHE ONLY EATS 1 MEAL A DAY. I TOLD HER WE SERVE 3 MEALS A DAY HERE. PT DID NOT UNDERSTAND. I TOLD HER BREAKFAST, LUNCH, & DINNER. SHE SAID SHE'S NEVER HEARD OF THAT. PT HASNT YELLED OUT FOR A WHILE BUT IS STILL TRYING TO CLIMB OUT OF BED. BED ALARM REMAINS ON.
--- NOTE | 2018-09-09 12:00 | NUR ---
PT REMOVED NC. 02 DROPPED QUICKLY. PLACED NC BACK ON PT AT 74% REMINDED PT SHE NEEDED TO KEEP HER NC ON. PT STATES SHE WILL GO TO THE DR SOON SHE GETS HOME. LUNCH TRAY PLACED ON BEDSIDE TABLE OVER PT.
--- NOTE | 2018-09-09 12:59 | NUR ---
PT ASKED FOR & GIVEN A BOTTLE OF WATER. PT STATES "NOW IM BEING GIVEN GOOD TREATMENT". PT AGAIN REMOVING MONITORING EQUIPMENT AND TRYING TO CLIMB OUT OF BED.
--- NOTE | 2018-09-09 13:39 | NUR ---
PER THIAGO SAMPSON, SHE & DR DYE HAVE HAD NUMEROUS CONFERENCE CALLS WITH PTS /SIGNIFICANT OTHER AND THEY ARE CLOSING UP THE HOUSE THEY ARE STAYING AT AND WILL BE HERE IN ABOUT 1 HOUR TO TAKE PT HOME. AWARE BOTH PT & NEED TO SIGN AMA FORM D/T PTS AMS/CONFUSION.
--- NOTE | 2018-09-09 13:48 | NUR ---
BED ALARM GOING OFF. PT ENCOURAGED TO STAY IN BED.
--- NOTE | 2018-09-09 13:50 | NUR ---
PT BREATHING THREW PURSED LIPS, LABORED BREATHING. PT REFUSING ASSESSMENT. REFUSING ALL MONITORING EXCEPT TELE.
--- NOTE | 2018-09-09 13:56 | NUR ---
BED ALARM TURNED OFF x3 TOTAL BC PT CONTINTUES TO STAND UP. PT REMINDED TO NOT GET OUT OF BED UNLESS STAFF IS PRESENT. PT SPEAKING IN [place].
--- NOTE | 2018-09-09 14:06 | NUR ---
RT @BEDSIDE FOR BREATHING TREATMENT. PT EDUCATED BY RT ABOUT PTS GRAVE CONDITION AND ADVISED AGAINST PT LEAVING HOSPTIAL.
--- NOTE | 2018-09-09 14:17 | NUR ---
PT SITTING ON SIDE OF BED, ELBOW ON BEDSIDE TABLE, HAND ON HEAD, HAVING A CONVERSATION WITH HERSELF IN [place].
--- NOTE | 2018-09-09 14:34 | NUR ---
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
--- NOTE | 2018-09-09 14:47 | NUR ---
PT ASSISTED UP TO BSC FOR SMALL, DARK, LIQUID STOOL. PT STATES HER ISNT COMING TO GET HER UNTIL 8PM SO THEY CAN CATCH A PLANE HOME.
--- NOTE | 2018-09-09 15:21 | NUR ---
BED ALARM GOING OFF AGAIN.
--- NOTE | 2018-09-09 15:32 | NUR ---
PT SITTING ON THE SIDE OF THE BED, YELLING THINGS IN [place]. PT DOES NOT WANT TO TALK IN [place]. REFUSES LANGUAGE LINE. WILL TRY AGAIN.
--- NOTE | 2018-09-09 15:37 | NUR ---
BED ALARM GOING OFF AGAIN.
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
--- NOTE | 2018-09-09 16:47 | NUR ---
PT SITTING ON THE SIDE OF THE BED, SPEAKING TO HERSELF IN [place]. PT REFUSED TO SPEAK KOREAN. REFUSED LANGUAGE LINE. REFUSED ASSESSMENT. REFUSED SCD. REFUSED MONITORING EQUIPMENT EXCEPT TELE. 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 BREATHING LABORED THROUGH PURSED LIPS, TACHYPENIC. DR DYE AWARE. NO NEW ORDERS.
--- NOTE | 2018-09-09 17:04 | NUR ---
BED ALARM SOUNDED. PT NOW BACK IN BED. REFUSING MONITORING.
--- NOTE | 2018-09-09 17:15 | NUR ---
PT REFUSED DINNER, STATING SHE "CANT EAT". TRAY LEFT IN ROOM IN CASE PT CHANGES HER MIND.
[2018-09-09 18:00] VITALS: BP 152/91
--- NOTE | 2018-09-09 19:05 | NUR ---
REPORT GIVENY BY ARMANDO SMALL. PATIENT SITTING AT BEDSIDE WITH ALARMS SOUNDING. PATIENT INFORM TO PLEASE ASK FOR HELP WHEN TRYING TO GET OUT OF BED. RESP LABORED, PATIENT CONTIUNES TO REMOVE OXYGEN. PATIENT REMOVED PULSE OX AND BP CUFF. LUNGS SOUNDS WHEEZING, ASKED PATIENT IF SHE WANTED A BREATHING TREAMENT. PATIENT ACCEPTED BREATHING TREATMENT. PATIENT STATES HER WILL BE COMING TO GET HER A 1999 TO GO BACK TO [place]. PATIENT INFORMED OF THE RISKS ABOUT LEAVING AGAINST MEDICAL ADVISE. FALL PRECAUTIONS IN PLACE. ASSESMENT COMPLETED AT THIS TIME.
--- NOTE | 2018-09-09 20:00 | NUR ---
ARRIVED AND TWO CLOSE FRIENDS TO LEAVE WITH PATIENT. AND PATIENT INFORMED OF RISKS WHEN LEAVING AMA. PATIENT CLEANED UP AND DRESSED BY STAFF AT THIS TIME.
--- NOTE | 2018-09-09 20:30 | NUR ---
GARCIA CATH REMOVED WITHOUT DIFFCULTLY. CENTRAL LINE REMOVED, PRESSURE APPLIED UNTIL BLEEDING STOPPED. PATIENT AND FAMILY INFORMED TO KEEP DRESSING IN PLACE FOR 24 HRS, NO HEAVY LIFTING.
--- NOTE | 2018-09-09 20:45 | NUR ---
Patient decides to leave AMA. Multiple attempts made to ecourage patient to remain here for continued treatment. Explained to patient all risks of leaving against medical advice including . Pt verbalized understanding of all risks. Pt also encouraged to return to [facility] at any time, especially if symptoms continue or become worse. Pt verbalized understanding. PATIENT LEFT AT 2044 WITH SPOUSE. ACCOMPANIED BY JUSTICE COURT JUDGE TO CAR WHEN LEAVING. AMA PAPERWORK SIGNED.
--- NOTE | 2018-09-09 20:45 | NUR ---
PATIENT NOT A CANDIDATE FOR [facility]. SPOKE WITH SUMI.
== END 2018-09-09 20:45 | disposition left against medical advice (07) | DRG 208 ==
LOC: ED 08:38 → ED-I 10:18 → ED 10:46 → ICU 10:47
PROVIDERS: Emergency Medicine; ADMIT Internal Medicine Nephrology; ATTEND Internal Medicine Nephrology
PROC: 0BH17EZ Insertion of Endotracheal Airway into Trachea, Via Natural or Artificial Opening (ICD-10-PCS; principal; 2018-09-06)
PROC: 5A1945Z Respiratory Ventilation, 24-96 Consecutive Hours (ICD-10-PCS; 2018-09-06)
PROC: 0T9B70Z Drainage of Bladder with Drainage Device, Via Natural or Artificial Opening (ICD-10-PCS; 2018-09-06)
PROC: 02HV33Z Insertion of Infusion Device into Superior Vena Cava, Percutaneous Approach (ICD-10-PCS; 2018-09-06)
DX: J96.02 Acute respiratory failure with hypercapnia (principal); J18.9 Pneumonia, unspecified organism; I50.21 Acute systolic (congestive) heart failure; J44.0 Chronic obstructive pulmonary disease with (acute) lower respiratory infection; J44.1 Chronic obstructive pulmonary disease with (acute) exacerbation; J96.01 Acute respiratory failure with hypoxia; I11.0 Hypertensive heart disease with heart failure; I95.9 Hypotension, unspecified; F17.200 Nicotine dependence, unspecified, uncomplicated; I25.10 Atherosclerotic heart disease of native coronary artery without angina pectoris; M06.9 Rheumatoid arthritis, unspecified; E78.5 Hyperlipidemia, unspecified; G62.9 Polyneuropathy, unspecified; Z79.52 Long term (current) use of systemic steroids; Z79.899 Other long term (current) drug therapy
CPT/HCPCS: J1650; J3475; S0164